=== PATIENT | male | born 1995 | race African-American/Black ===

== ENCOUNTER 2017-06-28 14:33 | Emergency (ER) | payer OTHER ==
[~2017-06-28] VITALS: Ht 175.3 cm; Wt 70.3 kg
[2017-06-28 14:36] VITALS: BP 108/73
[2017-06-28] MEDS ORDERED: MOBIC15 MG PO (15:27)
== END 2017-06-28 15:52 | disposition home or self-care (01) ==
LOC: ER 14:33
DX: M25.562 Pain in left knee (principal); F17.210 Nicotine dependence, cigarettes, uncomplicated